=== PATIENT | female | born 1985 | race Caucasian/White ===

== ENCOUNTER 2019-07-30 20:04 | Emergency (ER) | payer SELFPAY ==
--- NOTE | ~2019-07-30 | XR_ITS ---
EXAMINATION: XR chest 2V EXAM DATE: 07/30/2019 23:03 INDICATION: Right upper chest pain with shortness of breath. TECHNIQUE: Frontal and lateral projections of the chest obtained and reviewed. There is no prior [place] dy for comparison. FINDINGS: The lungs are clear. There are no pleural effusions. The cardiomediastinal silhouette is within normal limits. There is no pneumothorax suspected. The bones and soft tissues are unremarkab le. IMPRESSION: No acute cardiopulmonary findings. Reviewed, dictated and finalized at location A. INE STAKER
[2019-07-30 20:10] VITALS: BP 149/84; PULSE 93; RESP 24; TEMP 37.2; O2SAT 100
[2019-07-30 20:36] LABS: Basophils Absolute Auto 0.1 K/mm3 (0.0-0.1); Basophils Percent Auto 0.6 % (0.2-1.2); Eosinophils Absolute Auto 0.2 K/mm3 (0-0.3); Eosinophils Percent Auto 2.1 % (0-4.4); Hematocrit 41.6 % (37.0-47.0); Hemoglobin 13.4 g/dL (12.0-15.0); Immature Granulocyte Absolute 0.02 K/mm3 (0.00-0.031); Immature Granulocyte Percent A 0.2 % (0-0.5); Immature Platelet Fraction Pct 6.4 % (0.9-11.2); Lymphocytes Absolute Auto 2.77 K/mm3 (0.9-3.2); Lymphocytes Percent Auto 29.2 % (18.3-44.2); Mean Corpuscular HGB Conc 32.2 g/dl (32-36); Mean Corpuscular Hemoglobin 29.7 pg (26-34); Mean Corpuscular Volume 92.2 fl (80-100); Monocytes Absolute Auto 0.5 K/mm3 (0.1-0.6); Monocytes Percent Auto 5.1 % (2.6-8.5); Neutrophils Percent Auto 62.8 % (45.5-73.1); Nucleated Red Blood Cells Perc 0.3 % (0.0-0.2); Red Blood Count 4.51 M/mm3 (4.2-5.4); Red Cell Distribution Width 13.8 % (11.5-14.5); White Blood Count 9.5 K/mm3 (4.5-10.0)
--- NOTE | 2019-07-30 20:45 | ECG_ITS ---
Measurements Intervals [place] Rate: 94 P: 41 NC: 144 QRS: 32 QRSD: 87 T: 30 QT: 353 QTc: 442 Interpretive Statements SINUS RHYTHM RSR' IN V1 OR V2, PROBABLY NORMAL VARIANT BORDERLINE ECG Electronically Signed On 07-31-2019 7:28:24 [employer] by Parker Moya D.O.
[2019-07-30 20:46] LABS: Alanine Aminotransferase 97 U/L (4-35); Albumin Level 3.9 g/dL (3.5-5.1); Alkaline Phosphatase 61 U/L (38-126); Aspartate Amino Transferase 47 U/L (14-36); Bilirubin,Total 0.3 mg/dL (0.2-1.3); Blood Urea Nitrogen 16 mg/dL (7-17); Calcium 9.6 mg/dL (8.4-10.2); Carbon Dioxide 25 mmol/L (22-30); Chloride 103 mmol/L (98-107); Estimated CRCL calculation 87 ml/min; Estimated Glomerular Filt Rate > 60; Glucose 127 mg/dL (65-105); Lipase 133 U/L (23-300); Sodium 139 mmol/L (137-145)
[2019-07-30 22:07] VITALS: BP 123/97; PULSE 87; RESP 18; O2SAT 100
--- NOTE | 2019-07-30 22:13 | PC.NURSE ---
pt states she isn't able to give urine sample at this time. pt given call light and instructed to use it when she thinks she is able to give urine sample
--- NOTE | 2019-07-30 22:28 | ED.SOB ---
HPI - SOB/Dyspnea General Chief Complaint: Shortness of Breath/Dyspnea Stated Complaint: SOB Time Seen by Provider: 07/30/19 22:01 Source: patient and RN notes reviewed Mode of arrival: ambulatory Limitations: no limitations History of Present Illness HPI Narrative: Pt is a 34 y/o female presenting to the ED c/o shoulder pain. Pt reports she has been experiencing rt shoulder pain for 2 days. Pt notes the pain is stabbing and burning, and notes it worsened earlier today. Pt denies any known injury to her shoulder or any recent heavy lifting. Pt also reports SOB. Pertinent past history: other (None) Onset (ago): day(s) (2) Associated symptoms: other (SOB) Related Data Allergies Allergy/AdvReac Type Severity Reaction Status Date / Time hydromorphone Allergy Mild RASH Unverified 01/07/15 20:28 Review of Systems Review of Systems: All systems reviewed & are unremarkable except as noted in HPI and below Respiratory: Respiratory: Reports dyspnea Musculoskeletal: Musculoskeletal: Reports other (Rt shoulder pain) [facility] Past Medical History Medical History Kidney stone Surgical History Surgical History History of appendectomy History of surgical removal of ganglion cyst Social History Social History Smoking status: Current every day smoker Exam Narrative: Exam Narrative: GENERAL: Well-appearing, well-nourished, crying in pain with no tears . HEAD: Normocephalic, atraumatic. EYES: PERRLA and EOMI. ENT: Nares clear, no rhinorrhea or epistaxis. Mucous membranes moist. NECK: Supple. CHEST: Clear to auscultation. No respiratory distress. pain below the right sacpula HEART: Regular rate and rhythm. No murmur heard. Normal peripheral pulses. ABDOMEN: Soft, non tender, non distended, normal active bowel sounds. EXTREMITIES: Normal range of motion. No edema. SKIN: Warm, dry, no rash. NEURO: No focal deficits. Alert and oriented x3. PSYCH: Normal mood and affect. Course Course Emergency Course: Inform patient about her lab work, EKG and chest x-ray findings. She states that Toradol has not helped her with the pain. I do not see anything acute findings on the chest x-ray or in the blood work. Advised her to take pain medication muscle relaxers as prescribed. Follow-up with her primary doctor. Vital Signs Vital signs: Vital Signs Temperature 37.2 C 07/30/19 20:10 Pulse Rate 93 07/30/19 20:10 Respiratory Rate 24 H 07/30/19 20:10 Blood Pressure 149/84 H 07/30/19 20:10 Pulse Oximetry 100 07/30/19 20:10 Temperature 37.2 C 07/30/19 20:10 Pulse Rate 75 07/30/19 23:16 Respiratory Rate 18 07/30/19 23:16 Blood Pressure 114/60 07/30/19 23:16 Pulse Oximetry 99 07/30/19 23:16 MDM - SOB/Dyspnea Lab Data Result diagrams: 07/30/19 20:28 07/30/19 20:28 Labs: Lab Results 07/30/19 07/30/19 Range/Units 20:28 20:28 WBC 9.5 (4.5-10.0) K/mm3 RBC 4.51 (4.2-5.4) M/mm3 Hgb 13.4 (12.0-15.0) g/dL Hct 41.6 (37.0-47.0) % MCV 92.2 (80-100) fl MCH 29.7 (26-34) pg MCHC 32.2 (32-36) g/dl RDW 13.8 (11.5-14.5) % Plt Count TNP MPV TNP Immature Gran % (Auto) 0.2 (0-0.5) % Neut % (Auto) 62.8 (45.5-73.1) % Lymph % (Auto) 29.2 (18.3-44.2) % [place] % (Auto) 5.1 (2.6-8.5) % Eos % (Auto) 2.1 (0-4.4) % Baso % (Auto) 0.6 (0.2-1.2) % Lymph # (Auto) 2.77 (0.9-3.2) K/mm3 [place] # (Auto) 0.5 (0.1-0.6) K/mm3 Eos # (Auto) 0.2 (0-0.3) K/mm3 Baso # (Auto) 0.1 (0.0-0.1) K/mm3 Abs Immat Gran (auto) 0.02 (0.00-0.031) K/mm3 Absolute Neuts (auto) 6.0 (1.3-6.7) K/mm3 Absolute Nucleated RBC 0.0 (0.0-0.012) K/mm3 Nucleated RBC % 0.3 H (0.0-0.2) % % Immature Plt Fraction 6.4 (0.9-11.2) % Sodium 139 (137-145) mmol/L Potassium 4.0 (3.4-5.0) mmol/L Chloride 10
[2019-07-30] MEDS: KETOROLAC 30 MG/ML VIAL (*BKC) IV PUSH (22:45)
[2019-07-30 23:16] VITALS: BP 114/60; PULSE 75; RESP 18; O2SAT 99
== END 2019-07-30 23:37 | disposition home or self-care (01) ==
PROVIDERS: Emergency Provider Family Medicine
DX: M54.6 Pain in thoracic spine (principal); Z87.442 Personal history of urinary calculi; F17.290 Nicotine dependence, other tobacco product, uncomplicated
CPT/HCPCS: 36415; 71046; 80053; 83690; 85025; 85055; 93005; 96374; 99284; J1885

== ENCOUNTER 2019-08-11 14:48 | Emergency (ER) | payer SELFPAY ==
[2019-08-11 15:00] VITALS: BP 130/72; PULSE 97; RESP 16; TEMP 37.1; O2SAT 100
--- NOTE | 2019-08-11 15:02 | ED.GENADULT ---
HPI - General Adult General Chief complaint: Skin/Abscess/Foreign Body Stated complaint: pos spider bite Time Seen by Provider: 08/11/19 15:03 Source: patient and RN notes reviewed Mode of arrival: ambulatory Limitations: no limitations History of Present Illness HPI narrative: This is a 34 years old female presents to the office for an evaluation of possible spider bite on her right leg since yesterday. She does not know what bit her however she suspects it may be a spider. Complaint of redness, increased swelling, and warmth to touch. Denies fever however she reports feeling nauseous yesterday. She admits to history of staph infection in the past. She took a leftover antibiotic from a previous staph infection, 3 doses of Keflex before arrival. Td is up-to-date. Denies sick contact at home. Related Data Allergies Allergy/AdvReac Type Severity Reaction Status Date / Time hydromorphone Allergy Mild RASH Verified 08/11/19 15:07 Review of Systems Review of Systems: Narrative: CONSTITUTIONAL: Denies fever, chills CARDIOVASCULAR: Denies chest pain RESPIRATORY: Denies dyspnea GASTROINTESTINAL: Denies abdominal pain, vomiting, diarrhea. SKIN: reports painful lesion/insect bite in the right lower leg MUSCULOSKELETAL: Denies acute back pain NEUROLOGIC: Denies lightheaded PMFSH Past Medical History Medical History Kidney stone Surgical History Surgical History History of appendectomy History of surgical removal of ganglion cyst Social History Social History Smoking status: Current every day smoker Gender identity (if verbalized by the patient): Female Comments At time of signature, I agree with nursing past medical, surgical, social and family history. There is no relevant family history pertinent to the presenting complaint. Exam Narrative: Exam Narrative: GENERAL: This is a well-nourished, well-developed patient, in no apparent distress. CARDIOVASCULAR: Regular rate and rhythm without murmurs, gallops, or rubs. RESPIRATORY: Clear to auscultation. Breath sounds equal bilaterally. No wheezes, rales, or rhonchi. GASTROINTESTINAL: Abdomen soft, non-tender, nondistended. Bowel sounds are active. No hepato-splenomegaly, or palpable masses. No guarding. NEURO: awake, alert, and oriented to person, place and time. There were no obvious focal neurologic abnormalities. Steady gait EXTREMITIES: Normal range of motion. No edema. No calf tenderness. Right medial aspect of lower leg noted a localize nodule with edematous and erythema with clear demarmacation. No lymphandenitis. [place] Coma Scale Eye Opening: Spontaneous 4 [place] Coma Scale Motor: Obeys Commands 6 [place] Coma Scale Verbal: Oriented 5 Course Vital Signs Vital signs: Vital Signs Temperature 98.8 F 08/11/19 15:00 Pulse Rate 97 08/11/19 15:00 Respiratory Rate 16 08/11/19 15:00 Blood Pressure 130/72 08/11/19 15:00 Pulse Oximetry 100 08/11/19 15:00 Temperature 98.8 F 08/11/19 15:00 Pulse Rate 97 08/11/19 15:00 Respiratory Rate 16 08/11/19 15:00 Blood Pressure 130/72 08/11/19 15:00 Pulse Oximetry 100 08/11/19 15:00 Medical Decision Making MDM Narrative Medical decision making narrative: Discharge instructions reviewed with patient, as well as provided in writing per nursing staff. The instructions also include specific and strict return/GO TO THE ER as well as f/u information. All questions have been answered, and the patient deny any further questions with discharge and discharge plan. Differential Diagnosis Differential Diagnosis: Abscess, cellulitis, psoriasis, viral exanthem Vital Signs Vital Signs: Vital Signs Temperature 98.8 F 08/11/19 15:00 Pulse Rate 97 08/11/19 15:00 Respiratory Rate 16 08/11/19 15:00 Blood Pressure 130/72
== END 2019-08-11 15:18 | disposition home or self-care (01) ==
PROVIDERS: Emergency Provider Nurse Practitioner
DX: S80.861A Insect bite (nonvenomous), right lower leg, initial encounter (principal); L03.115 Cellulitis of right lower limb; W57.XXXA Bitten or stung by nonvenomous insect and other nonvenomous arthropods, initial encounter; Z86.19 Personal history of other infectious and parasitic diseases
CPT/HCPCS: 99213; G0463